=== PATIENT | male | born 1985 | race Caucasian/White ===

== ENCOUNTER 2024-08-28 16:38 | Emergency (ER) | payer OTHER, SELFPAY ==
[2024-08-28 16:45] VITALS: BP 130/93
[2024-08-28 17:05] LABS: % Basophils 0.4 % (0-2); % Eosinophils 2.8 % (0-6); % Immature Granulocytes 0.1 % (0-0.5); % Lymphocytes 40.5 % (20.5-51.1); % Monocytes 7.6 % (1.7-9.3); % Neutrophils 48.6 % (42.2-75.2); Absolute Eosinophils 0.2 10^3/uL (0-0.7); Absolute Lymphocytes 2.7 10^3/uL (1.2-3.4); Absolute Monocytes 0.5 10^3/uL (0.1-0.6); Absolute Neutrophils 3.3 10^3/uL (1.4-6.5); Hematocrit 42.4 % (39.0-52.0); Hemoglobin 15.2 g/dL (13.0-18.0); Mean Corp Hgb Conc. 35.8 g/dL (33.0-37.0); Mean Corpuscular Hgb 30.5 pg (27.0-31.0); Mean Corpuscular Volume 85.1 fL (80.0-94.0); Mean Platelet Volume 9.6 fL (7.4-10.4); Nucleated Red Blood Cells % 0 % (-); Platelet Count 242 10^3/uL (130-400); Red Blood Cell Count 4.98 10^6/uL (4.70-6.10); Red Cell Dist. Width 11.9 % (11.5-14.5); White Blood Cell Count 6.7 10^3/uL (4.8-10.8)
[2024-08-28 17:18] LABS: ALT (SGPT) 91 U/L (0-50); AST (SGOT) 46 U/L (17-59); Albumin 4.7 g/dl (3.5-5.0); Alkaline Phosphatase 41 U/L (38-126); Blood Urea Nitrogen 9 mg/dl (9-20); Calcium 10.2 mg/dl (8.4-10.2); Carbon Dioxide 24 mmol/L (22-30); Glucose 113 mg/dl (70-99); Lipase 55 U/L (23-300); Total Bilirubin 0.8 mg/dl (0.2-1.3); Total Protein 7.8 g/dl (6.3-8.2); eGFR > 60.00
[2024-08-28 17:33] LABS: Troponin I < 0.012 ng/ml
[2024-08-28 17:53] LABS: Chloride 103 mmol/L (98-107); Potassium 3.8 mmol/L (3.5-5.1); Sodium 142 mmol/L (135-145)
--- NOTE | 2024-08-28 19:36 | ED.GENMED ---
History of Present Illness
General
Chief Complaint: Abdominal Pain
Source: patient, records and spouse
Exam Limitations: none
Time Seen by Provider: 08/28/24 19:18
Nursing documentation reviewed up to this point in time: agreed with
History of Present Illness
History of Present Illness:
Patient is a 39-year-old male who presents to the emergency department complaining of left upper quadrant dull pain for the past week. Patient quit smoking 2 months ago. Patient had an episode of nausea vomiting this morning after drinking coffee.
Patient has noted that his heartburn has increased and does not seem to be particularly responsive to Prilosec or Pepcid or Tums. Patient denies any chest pain or coughing. Patient has minimal shortness of breath but this seems to be his
baseline. Patient denies diarrhea, constipation, melena or hematochezia. Patient's had chills but denies fever. Patient denies history of PE or DVT. Patient denies risk factors for PE or DVT. Patient states the pain got worse when he bent over.
Patient denies any recent injuries or illnesses.
Past History
Past History
ED Past Medical History: GERD; Negative Asthma, HTN, Hypercholesterolemia or NIDDM
ED Past Surgical History: Cholecystectomy
Social History
Tobacco: Former smoker
Alcohol: Occasional
Drug: None
Personal: Single
Living: alone
Employment: Employed
Review of Systems
Review of Systems
All Other Systems: ROS reviewed and negative except as documented in HPI and ROS
Constitutional: Reports chills; Denies fever
EENT: Reports no symptoms
Respiratory: Reports no symptoms; Denies trouble breathing
Cardiac: Reports chest pain; Denies diaphoresis, palpitations or syncope
ABD/GI: Reports abdominal pain, nausea and vomiting; Denies diarrhea, constipated, bloody stools or black stools
: Reports no symptoms
Musculoskeletal: Reports no symptoms
Skin: Reports no symptoms
Neurological: Reports no symptoms
Hematologic/Lymphatic: Reports no symptoms
Phy Exam
Physical Exam
Physical Exam:
Physical Exam
General: No apparent distress, alert and appropriate, well nourished, well hydrated
HENT: Normocephalic, supple with no lymphadenopathy, no thyromegaly
Eyes: Clear sclera, conjuctiva without injection
Heart: Regular rhythm and rate. No S3, S4. No murmur.
Lungs: No respiratory distress, no stridor, lung sounds clear and equal bilaterally, chest wall symmetrical and reproducible tenderness without crepitus or deformity or subcutaneous emphysema along the left lower costal
margin
Abdomen: Soft, mild midepigastric tenderness without guarding or rebound, no organomegaly, no CVA tenderness, BS good
Neuro: Alert and oriented x 3, CN II - XII intact, no motor focality, no cerebellar dysfunction
Skin: no rash
Psychiatric: well kept. interactive and cooperative
Extremities: No edema, cyanosis, tenderness, Good and equal peripheral pulses.
Course
Orders/Labs/Results
Orders:
Orders
08/28/24 16:46
Electrocardiogram (*1) Urgent
Reason for Study: Abdominal Pain
EKG- Treatment ONCE
08/28/24 16:54
Complete Blood Count/With Diff Urgent
Comprehensive Metabolic Panel Urgent
Lipase Urgent
Troponin I Urgent
Abnormal Lab Results
08/28/24
16:54
Glucose 113 H mg/dl
(70-99)
ALT 91 H U/L
(0-50)
08/28/24 16:54
08/28/24 16:54
Vital Signs
Initial and Last Documented VS:
Initial Vital Signs
Temp Pulse Resp BP Pulse Ox
98.6 F 91 18 130/93 98
08/28/24 16:45 08/28/24 16:45 08/28/24 16:45 08/28/24 16:45 08/28/24 16:45
Last Documented Vital Signs
Temp Pulse Resp BP Pulse Ox
98 F 74 18 133/84 98
08/28/24 19:45 08/28/24 19:45 08/28/24 19:45 08/28/24 19:45 08/28/24 19:45
*Radiology
Radiology exam reviewed: other (Not applicable)
*Pulse Oximetry
Patient hypoxic: no
*EKG
Interpreted by ED Provider?: Yes
EKG Intrepretation Date: 08/29/24
EKG Intrepretation Time: 02:02
Interpretation: normal
Comparison EKG: no comparison EKG present
Heart Rate: 71
Rate: normal
Rhythm: sinus
Rodessa: normal axis
Interval: normal interval
QRS Pattern: normal QRS
Ischemia: no ischemia
*Bladder Tier Interpretation
Rate: Bladder Tier- N/A
*Critical Care Note
Total Time (30-74mins, 75-104mins- exclusive of procedures): Not Applicable
Update Note
Update Note:
Patient's main problem seems to be reflux for which she is not really treating. The patient's left upper quadrant pain seems to be more musculoskeletal as reproducible along the costal margin. Will treat the patient for reflux and have him
follow-up with gastroenterology since he does not have a primary care physician. Patient understands and any increasing pain or shortness of breath to return immediately.
ED Attending Note
-
Portions of this chart may have been created with voice recognition software.� Occasional wrong word or��sound alike� substitutions may have occurred due to the inherent limitations of voice recognition software.
Discharge Plan
Departure
Patient Disposition: Home (Routine Discharge)
Date of Disposition: 08/28/24
Time of Disposition: 19:36
Patient with high blood pressure during this ER visit?: No
Condition: Good
Covid-19: Not Applicable
Discharge Problem:
GERD with esophagitis, Musculoskeletal chest pain
Instructions: Costochondritis, Acid Reflux and GERD in Adults (DC)
Prescriptions:
New
sucralfate [Carafate] 1 gram tablet
1 g PO QID Qty: 60 0RF
pantoprazole [Protonix] 40 mg tablet,delayed release (DR/EC)
40 mg PO BID Qty: 30 0RF
No Action
diphenoxylate-atropine 1 TABLET tablet
1 tab PO Q6HPRN PRN (Reason: Diarrhea) Qty: 15 0RF
Rx Instructions:
1 or 2 tablets as needed
Referrals:
Julita Cuba MD [Active] - Call in 1-3 days for appt
UNKNOWN - PT DOES,NOT KNOW [Family Provider] -
Activity Restrictions/Additional Instructions:
Acetaminophen 1000 mg every 6 hours for pain with ice or heat, 20 minutes 4-5 times a day, to the area that hurts.
Interventions
Interventions:
*Risk Screen - Suicide Last Done: 08/28/24 16:45
*General Assessment Last Done: 08/28/24 16:45
*Neglect/Abuse Screening Last Done: 08/28/24 16:45
*ED COVID-19 Vaccine History Last Done: 08/28/24 16:45
*Nursing Disposition Last Done: 08/28/24 19:45
[facility]dg[facility] Assessment Last Done: 08/28/24 17:42
Discharge Date and Time
Discharge Date/Time: 08/28/24 19:45
Print Language: ESTONIAN
[2024-08-28 19:45] VITALS: BP 133/84
== END 2024-08-28 19:45 | disposition home or self-care (01) ==
LOC: EMR 16:38
PROVIDERS: Emergency Medicine; EMERGENCY PHYSICIAN Emergency Medicine
DX: K21.00 Gastro-esophageal reflux disease with esophagitis, without bleeding (principal); R07.89 Other chest pain; Z87.891 Personal history of nicotine dependence
CPT/HCPCS: 99284; 80053; 83690; 84484; 85025; 93005

== ENCOUNTER → 2025-04-12 07:08 | Outpatient (REF) | payer OTHER, SELFPAY | LOC: HWRAD 07:08 | PROVIDERS: ATTENDING PHYSICIAN Internal Medicine Gastroenterology | DX: R94.5 Abnormal results of liver function studies (principal) | CPT/HCPCS: 76700 ==

== ENCOUNTER 2025-04-30 06:29 | Day surgery (SDC) | payer OTHER, SELFPAY | END 2025-04-30 13:55 | disposition home or self-care (01) | LOC: GI 06:29 | PROVIDERS: ATTENDING PHYSICIAN Internal Medicine Gastroenterology | DX: R12 Heartburn (principal); K21.00 Gastro-esophageal reflux disease with esophagitis, without bleeding | CPT/HCPCS: 43235 ==